=== PATIENT | male | born 1975 | race Caucasian/White ===

== ENCOUNTER 2019-11-19 17:19 | Emergency (ER) | payer MEDICAID ==
[~2019-11-19] VITALS: Ht 167.6 cm; Wt 124.0 kg
[~2019-11-19 17:19] MED LIST: LISI-230 PO; PRED20TA PO
[2019-11-19 18:41] VITALS: BP 156/90
[2019-11-19] MEDS ORDERED: ketorolac trometh. 30mg/ml inj. IM ONE (19:15)
== END 2019-11-19 19:35 | disposition home or self-care (01) ==
LOC: ER 17:20
DX: S46.912A Strain of unspecified muscle, fascia and tendon at shoulder and upper arm level, left arm, initial encounter (principal); I10 Essential (primary) hypertension; J45.909 Unspecified asthma, uncomplicated; G47.30 Sleep apnea, unspecified; Z98.890 Other specified postprocedural states; Z79.899 Other long term (current) drug therapy; Y93.B9 Activity, other involving muscle strengthening exercises
CPT/HCPCS: 96372; 99283; J1885